=== PATIENT | female | born 1985 | race Caucasian/White ===

== ENCOUNTER → 2018-06-01 | Outpatient (CLI) | payer SELFPAY ==
[~2018-06-01] MED LIST: NAPR-243 PO; PENI500T PO; TRAM50TA2 PO; TRM50T PO
--- NOTE | 2018-06-01 13:24 | Diagnostic Imaging Report ---
EXAMINATION: Left foot at 12:07 p.m. INDICATION: Foot pain. FINDINGS: Three views were obtained. There are no prior studies available for comparison. There is no fracture, dislocation, or acute bony abnormality evident. The Lisfranc joint is well maintained. The soft tissues are unremarkable. IMPRESSION: There is no evidence for an acute bony abnormality. Dictated by: Dictated on workstation # [id number]
== END ==
LOC: RAD 11:34
PROVIDERS: ATTEND Family Medicine
DX: M79.672 Pain in left foot (principal); W20.8XXA Other cause of strike by thrown, projected or falling object, initial encounter
CPT/HCPCS: 73630

== ENCOUNTER → 2019-03-15 | Outpatient (CLI) | payer OTHER ==
--- NOTE | 2019-03-15 14:12 | Diagnostic Imaging Report ---
INDICATION: Shoulder pain. COMPARISON: None. FINDINGS: Three views of the right shoulder were obtained. There is no fracture, dislocation, or other acute bony abnormality identified. The soft tissues appear unremarkable. No radiopaque foreign bodies identified. The visualized portions of the right lung are clear. IMPRESSION: No acute fractures or dislocations of the right shoulder. Dictated by: Dictated on workstation # [id number]
== END ==
LOC: RAD 13:07
PROVIDERS: ATTEND Family Medicine
DX: M25.511 Pain in right shoulder (principal)
CPT/HCPCS: 73030

== ENCOUNTER 2022-10-19 18:26 | Emergency (ER) | payer SELFPAY ==
[~2022-10-19] VITALS: Ht 157 cm; Wt 100.0 kg
[2022-10-19] MEDS ORDERED: KETOROLAC 30 MG/ML VIAL IM ONE (19:00)
--- NOTE | 2022-10-19 19:03 | ED Lower Extremity ---
General Chief Complaint: Lower Extremity Stated Complaint: RIGHT KNEE PAIN Nursing Triage Note: pt presents to ED with c/o right knee pain after twisting it while getting into the car wednesday. pt states she heard a "pop" and has had increasing pain since. pt unable to bear full weight. Source: patient Exam Limitations: no limitations (SARIAH HYMAN APRN) History of Present Illness Date Seen by Provider: Oct 19, 2022 Time Seen by Provider: 18:50 Initial Comments 37-year-old female presents to the ER with complaints of right knee pain which started last night. She states that she was loading items into her vehicle and twisted her knee and heard a pop. She states it feels as though she hyperextended a tendon in her knee. She reports the pain shoots up into her hip at times. She states she cannot bend her knee. Reports pain is worse with walking. She has not taken any pain medication. Denies any numbness or tingling in her leg or foot. (SARIAH HYMAN APRN) Allergies and Home Medications Allergies Coded Allergies: Iodinated Contrast Media - IV Dye (Unverified Allergy, Mild, 09/12/13) Patient Home Medication List Home Medication List Reviewed: Yes (SARIAH HYMAN APRN) Naproxen (Naprosyn) 500 Mg Tablet, 1 EACH PO TID PRN for PAIN Prescribed by: АЛЕКСАНДР PEDERSON on 09/12/13826 Penicillin V Potassium (Pen-Vee K) 500 Mg Tablet, 1 TAB PO QID Prescribed by: АЛЕКСАНДР PEDERSON on 09/12/13826 Tramadol Hcl (Ultram) 50 Mg Tab, 50 MG PO Q4-6HR PRN for PAIN Prescribed by: АЛЕКСАНДР PEDERSON on 09/12/13826 Review of Systems Constitutional: see HPI Musculoskeletal: see HPI (SARIAH HYMAN APRN) Past Iyzbnco-Itmrde-Tksidl Hx Patient Social History Tobacco Use?: No Substance use?: No Alcohol Use?: No Pt feels they are or have been: No (SARIAH HYMAN APRN) Immunizations Up To Date Tetanus Booster (TDap): Less than 5yrs (SARIAH HYMAN APRN) Past Medical History 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 oz. 81.289817mz; 40.00 BMI Method:Stated General Appearance: WD/WN, no apparent distress Neck: supple, normal inspection Cardiovascular: regular rate, rhythm Respiratory: lungs clear, normal breath sounds, no respiratory distress, no accessory muscle use Legs: right leg limited range of motion, right leg pain, right leg soft tissue tenderness Feet: right foot other (Sensation intact distally, cap refill less than 2 seconds, pulses intact) Neurologic/Psychiatric: alert, normal mood/affect Skin: normal color, warm/dry (SARIAH HYMAN APRN) Progress/Results/Core Measures Results/Orders Medications Given in ED Current Medications Medications Dose Ordered Sig/Kaya Route Start Time Stop Time Status Last Admin Dose Admin Ketorolac Tromethamine 30 mg ONCE ONCE IM 10/19/22 19:00 10/19/22 19:01 DC 10/19/22 19:22 30 MG (DALIA CRUZ MD) Vital Signs/I&O 10/19/22 10/19/22 18:40 19:54 Temp 36.8 Pulse 79 79 Resp 18 18 B/P (MAP) 139/89 (106) 135/89 Pulse Ox 97 97 O2 Delivery Room Air Room Air (DALIA CRUZ MD) Blood Pressure Mean: 106 Progress Progress Note : Progress Note Patient seen and evaluated, resting comfortably in bed, no acute distress. Based on exam and symptoms, x-ray of right knee ordered. Toradol ordered for pain. 1925 x-ray reviewed. Negative for acute osseous abnormality. Results discussed with patient. Will try to place patient in a knee immobilizer and give a prescription for crutches. Discharge instructions and return precautions pr ovided. (SARIAH HYMAN APRN) Diagnostic Imaging Diagonstic Imaging: Xray Plain Films/CT/US/NM/MRI: knee Comments [facility]. [place], [place] NAME: DEVANTE LATHAM [facility] REC#: [id number] PT STATUS: REG ER : 1985 PHYSICIAN: SARIAH HYMAN APRN ADMIT DATE: 10/19/22/ER Signed Date of Exam:10/19/22 KNEE, RIGHT, 3 VIEWS INDICATION: Right knee pain EXAM: 3 views of the right knee FINDINGS: There is no fracture, dislocation of acute abnormality. IMPRESSION: Negative right knee. Dictated by: Dictated on workstation # [id number] Dict: 10/19/221915 Trans: 10/19/221921 [facility] [phone] Interpreted by: VIKTORIYA MCGREGOR MD Electronically signed by: VIKTORIYA MCGREGOR MD 10/19/221921 (SARIAH HYMAN APRN) Departure Impression Primary Impression: Sprain of knee Qualified Codes: S83.421A - Sprain of lateral collateral ligament of right knee, initial encounter Disposition: 01 HOME, SELF-CARE Condition: Stable Departure-Patient Inst. Decision time for Depature: 19:49 (SARIAH HYMAN APRN) Referrals: RICKY JOHN MD (PCP/Family) Primary Care Physician Patient Instructions: Ligament Injuries in the Knee (DC) Add. Discharge Instructions: Wear the knee immobilizer for comfort to help prevent you from bending the knee. Use the crutches to keep weight off of your knee. Rest your knee as much as possible, elevate above the level of your heart. You need to stay off of your knee for the next several days to help with healing and prevent further injury. Ice your knee for 20 minutes at a time several times a day for the next couple of days. Take 800 mg of ibuprofen every 8 hours with food [id number] for the next couple days to help with pain and inflammation. You may also take 1000 mg of Tylenol every 8 hours as needed for pain. Follow-up with your primary care provider if your pain does not improve in a week. Return for any new, concerning, or worsening symptoms. All discharge instructions reviewed with patient and/or family. Voiced understanding. Work/School Note: Work Release Form Date Seen in the Emergency Department: Oct 19, 2022 Return to Work: Oct 26, 2022 Restrictions: No Restrictions ATTENDING PHYSICIAN NOTE: I was physically present as attending physician in the emergency department during the care of this patient, but I was not directly involved in the decision making or delivery of care for this patient. (DALIA CRUZ MD) SARIAH HYMAN APRN Oct 19, 2022 19:03 DALIA CRUZ MD Oct 20, 2022 02:00
--- NOTE | 2022-10-19 19:18 | Diagnostic Imaging Report ---
INDICATION: Right knee pain EXAM: 3 views of the right knee FINDINGS: There is no fracture, dislocation of acute abnormality. IMPRESSION: Negative right knee. Dictated by: Dictated on workstation # [id number]
[2022-10-19 19:54] VITALS: BP 135/89
== END 2022-10-19 19:59 | disposition home or self-care (01) ==
LOC: EDUNIT# 18:26 → ER 18:31
DX: S83.421A Sprain of lateral collateral ligament of right knee, initial encounter (principal); X50.1XXA Overexertion from prolonged static or awkward postures, initial encounter
CPT/HCPCS: 73562